=== PATIENT | male | born 1960 | race Caucasian/White ===

== ENCOUNTER 2018-02-10 00:33 | Emergency (ER) | payer OTHER ==
[2018-02-10 00:37] VITALS: BP 122/83; PULSE 89; RESP 18; TEMP 98.8; O2SAT 99
[2018-02-10] MEDS ORDERED: KETOROLAC TROMETHAMINE 30 MG/ML SOL IM ONE (01:21)
[2018-02-10] MEDS ORDERED: DIAZEPAM 5 MG TAB PO ONE (01:23)
[2018-02-10] MEDS ORDERED: DIAZEPAM 5 MG TAB ONE (01:31)
[2018-02-10] MEDS ORDERED: KETOROLAC TROMETHAMINE 30 MG/ML SOL ONE (01:31)
== END 2018-02-10 02:06 | disposition home or self-care (01) | DRG 552 ==
LOC: ED 00:33
DX: M51.17 Intervertebral disc disorders with radiculopathy, lumbosacral region (principal)
CPT/HCPCS: 96372; 99282; J1885; A9270-GY

== ENCOUNTER 2018-03-15 18:18 | Emergency (ER) | payer OTHER ==
[2018-03-15] MEDS ORDERED: SODIUM CHLORIDE 0.9% FLUSH 10 ML SOL IV PRN (18:20)
[2018-03-15 18:44] LABS: BASOPHILS % (AUTO) 1 % (0-3); EOSINOPHILS % (AUTO) 2 % (0-9); HEMATOCRIT 36 % (39-53); HEMOGLOBIN 11.6 gm/dl (13.5-17.7); LYMPHOCYTES % (AUTO) 22.3 % (10-50); MEAN CORPUSCULAR HEMOGLOBIN 30.6 pg (27.0-32.0); MEAN CORPUSCULAR HGB CONC 32.6 gm/dl (32.0-36.0); MEAN CORPUSCULAR VOLUME 94 fL (80-100); MONOCYTES % (AUTO) 7.9 % (0-12); NEUTROPHILS % (AUTO) 66.6 % (37-80)
[2018-03-15 18:55] VITALS: RESP 18
[2018-03-15 18:56] LABS: ALBUMIN 2.5 gm/dl (3.4-5.0); BILIRUBIN,TOTAL 0.3 mg/dl (0.2-1.0); CALCIUM 8.1 mg/dl (8.5-10.1); CARBON DIOXIDE 25.4 mEq/L (21-32); CREATININE 0.76 mg/dl (0.80-1.30); CRP INFLAMMATORY 3.64 mg/dl (0.00-0.33); POTASSIUM 3.9 mMol/L (3.5-5.1); TOTAL PROTEIN 7.9 gm/dl (6.4-8.2)
[2018-03-15 19:45] LABS: APPEARANCE,URINE Clear; BILIRUBIN,URINE NEGATIVE (NEGATIVE); COLOR,URINE Yellow; GLUCOSE, URINE (UA) NEGATIVE (NEGATIVE); KETONES,URINE NEGATIVE (NEGATIVE); LEUKOCYTE ESTERASE ,URINE NEGATIVE (NEGATIVE); NITRATE,URINE NEGATIVE (NEGATIVE); OCCULT BLOOD,URINE NEGATIVE (NEG-TRACE); PH,URINE 5.5; UROBILINOGEN,URINE 0.2 (0.2-1.0 EU)
[2018-03-15 19:57] LABS: AMPHETAMINES NEGATIVE (NEGATIVE); BACTERIA TRACE (< 1+); BARBITUATES NEGATIVE (NEGATIVE); BENZODIAZEPINES NEGATIVE (NEGATIVE); CANNABINOL(THC) POSITIVE (NEGATIVE); COCAINE(COC) NEGATIVE (NEGATIVE); CRYSTALS NEGATIVE (0-3 AVE/HPF); EPITHELIAL CELLS NEGATIVE (SQUAMOUS); METHADONE NEGATIVE (NEGATIVE); METHAMPHETAMINES NEGATIVE (NEGATIVE); OPIATES(OPI) POSITIVE (NEGATIVE); OXYCODONE(OXY) NEGATIVE (NEGATIVE); PROPOXYPHENE(PPX) NEGATIVE (NEGATIVE); RBC,URINE NEG (0-3AV/HPF); TRICYCLIC ANTIDEPRESSANTS NEGATIVE (NEGATIVE); WBC,URINE NEG (0-5AV/HPF)
[2018-03-15] MEDS ORDERED: VANCOMYCIN HCL 500 MG PDS 1,500 MG in SODIUM CHLORIDE 0.9% 500 ML 500 ML IV SCH (20:00)
[2018-03-15] MEDS ORDERED: CEFTRIAXONE 1 GM PDS ONE (20:06)
[2018-03-15] MEDS ORDERED: VANCOMYCIN HYDROCHLORIDE 500 MG PDS IV ONE (20:23)
[2018-03-15 21:30] VITALS: BP 135/72; PULSE 82; TEMP 98.5; O2SAT 98
[2018-03-16] MEDS ORDERED: CEFTRIAXONE 1 GM PDS 2 GM in SODIUM CHLORIDE 0.9% 100 ML 100 ML IV SCH (09:00)
== END 2018-03-15 21:22 | disposition home or self-care (01) | DRG 94 ==
LOC: ED 18:18
DX: G06.1 Intraspinal abscess and granuloma (principal); J86.9 Pyothorax without fistula; R73.9 Hyperglycemia, unspecified
CPT/HCPCS: 36415; 72156; 72157; 72158; 80053; 80305; 81001; 85025; 87040; 96365; 99284; 99285; J0696; J3370; A9585

== ENCOUNTER 2018-03-28 21:48 | Emergency (ER) | payer OTHER ==
[2018-03-28 22:31] VITALS: RESP 18; TEMP 98.6
[2018-03-29 00:39] VITALS: BP 151/87; PULSE 86; O2SAT 98
== END 2018-03-28 23:35 | disposition home or self-care (01) | DRG 316 ==
LOC: ED 21:48
DX: T82.598A Other mechanical complication of other cardiac and vascular devices and implants, initial encounter (principal)
CPT/HCPCS: 36589; 71045; 99283; A6402

== ENCOUNTER 2018-03-29 10:06 | Day surgery (SDC) | payer OTHER ==
[2018-03-29 11:01] VITALS: BP 154/95; PULSE 80; RESP 16; TEMP 98.8; O2SAT 96
[2018-03-29] MEDS ORDERED: SODIUM CHLORIDE 20 ML 0 ML ONE (11:05)
[2018-03-29] MEDS ORDERED: SODIUM CHLORIDE 0.9% FLUSH 10 ML SOL IV ONE (11:24)
== END 2018-03-29 11:53 | disposition home or self-care (01) | DRG 552 ==
LOC: SURG 10:06
PROVIDERS: ATTEND Nurse Anesthetist, Certified Registered
DX: M46.40 Discitis, unspecified, site unspecified (principal)
CPT/HCPCS: 71045